=== PATIENT | female | born 1995 | race Caucasian/White ===

== ENCOUNTER → 2016-04-25 | Outpatient (CLI) | payer OTHER, BC ==
--- NOTE | 2016-04-25 13:53 | MR ---
EXAMINATION TYPE: MR lumbar spine wo con DATE OF EXAM: 04/25/2016 1:08 PM COMPARISON: NONE HISTORY: Back pain TECHNIQUE: T1 and T2 axial and sagittal images of the lumbar spine are submitted. FINDINGS: There is no abnormal signal seen within the visualized spinal cord or paraspinal soft tissu es. At L1-2 there is no disc herniation or canal stenosis. No foraminal encroachment. At L2-3 there is no disc herniation or canal stenosis. No foraminal encroachment. At L3-4 there is no disc herniation or canal stenosis. No foraminal encroachment At L4-5 there is no disc herniation or canal stenosis. No foraminal encroachment At L5-S1 there is no disc herniation or canal stenosis. No foraminal encroachment IMPRESSION: 1. Normal MRI lumbar spine. EXAMINATION TYPE: MR thoracic spine wo con DATE OF EXAM: 04/25/2016 1:08 PM COMPARISON: NONE HISTORY: Back pain Standard multiplanar, multisequence MRI departmental protocol Multiplanar, multisequence images of the thoracic spine were acquired. Diffusion weighted imaging was performed. FINDINGS: At T5-T6 there is left paracentral disc bulging. No spinal cord contact. At T6-T7 there is central and right paracentral disc bulging or small protrusion. Neural foramina rem ain patent there is mild effacement of the thecal sac. At T8-T9 paracentral disc bulging but no canal stenosis. Mild effacement of thecal sac. Neural forami na. Remaining levels demonstrate no evidence of disc bulging, herniation, canal stenosis or foraminal enc roachment. No abnormal signal seen in the visualized spinal cord. IMPRESSION: Multilevel disc bulging with mild effacement of thecal sac but no evidence of neural foraminal encroa chment.
== END | disposition home or self-care (01) ==
LOC: RADMRIMAIN 12:00
PROVIDERS: ATTEND Psychiatry & Neurology Pain Medicine
DX: M51.24 Other intervertebral disc displacement, thoracic region (principal); M54.5 Low back pain
CPT/HCPCS: 72146; 72148

== ENCOUNTER → 2016-05-06 | Outpatient (CLI) | payer OTHER, BC ==
--- NOTE | 2016-05-06 23:11 | MR ---
EXAMINATION TYPE: MR cervical spine wo con DATE OF EXAM: 05/06/2016 9:50 PM COMPARISON: NONE HISTORY: CERVICAGIA, VISUAL CHANGES TECHNIQUE: Multiplanar, multisequence images of the cervical spine were acquired. C2-C3: No evidence for degenerative disc disease. No disc bulge/herniation or protrusion. No Canal stenosis. Foramina are patent bilaterally. C3-C4: No evidence for degenerative disc disease. No disc bulge/herniation or protrusion. No Canal stenosis. Foramina are patent bilaterally. C4-C5: No evidence for degenerative disc disease. No disc bulge/herniation or protrusion. No Canal stenosis. Foramina are patent bilaterally. C5-C6: No evidence for degenerative disc disease. No disc bulge/herniation or protrusion. No Canal stenosis. Foramina are patent bilaterally. C6-C7: No evidence for degenerative disc disease. No disc bulge/herniation or protrusion. No Canal stenosis. Foramina are patent bilaterally. C7-T1: No evidence for degenerative disc disease. No disc bulge/herniation or protrusion. No Canal stenosis. Foramina are patent bilaterally. Cervical segments are intact. There is normal alignment. Cervical spinal cord is of normal signal. Craniovertebral junction relationships are within normal limits. IMPRESSION: 1. No evidence of disc herniation, canal stenosis, or foraminal encroachment.
--- NOTE | 2016-05-07 00:21 | MR ---
EXAMINATION TYPE: MR brain wo/w con DATE OF EXAM: 05/06/2016 10:16 PM COMPARISON: NONE HISTORY: CERVICALGIA, VISUAL CHANGES CONTRAST: Standard multiplanar, multisequence MRI departmental protocol utilizing 13 mL intravenous MultiHance gadolinium contrast. FINDINGS: The ventricles and sulci appear normal. There is no mass effect nor midline shift. There is no evidence of intracranial hemorrhage. Ma and white matter structures have fairly normal signal p attern. There is no evidence of cerebral edema. There is altered signal across the brain on the FLAIR images on the axial image 18 that is thought to be artifactual. The T2 images in this area appear no rmal. The brainstem appears normal. Corpus callosum appears normal. Sella turcica appears normal. The re is normal uniform enhancement of the sella turcica. I see no pathologic enhancement. The remainder of the exam is unremarkable. IMPRESSION: Normal MR scan of the brain with and without contrast.
== END | disposition home or self-care (01) ==
LOC: RADMRIMAIN 20:51
PROVIDERS: ATTEND Psychiatry & Neurology Pain Medicine
DX: H53.8 Other visual disturbances (principal); M54.2 Cervicalgia
CPT/HCPCS: 70553; 72141; A9577

== ENCOUNTER 2022-01-21 14:09 | Emergency (ER) | payer BC ==
[2022-01-21 14:43] VITALS: BP 115/71; PULSE 78; RESP 16
[2022-01-21] MEDS ORDERED: LIDOCAINE 1% INJ 10MG/ML (30 ML VIAL-PF) SQ ONE (15:30)
[2022-01-21 16:06] VITALS: TEMP 98.2
--- NOTE | 2022-01-21 16:18 | XR ---
EXAMINATION TYPE: XR humerus LT DATE OF EXAM: 01/21/2022 CLINICAL HISTORY: Laceration injury with pain. TECHNIQUE: Two views of the left humerus are obtained. COMPARISON: None. FINDINGS: There is no acute fracture or dislocation seen in the left humerus. The left shoulder and elbow joints appear within normal limits. The overlying soft tissue appears within normal limits. IMPRESSION: Unremarkable study.
--- NOTE | 2022-01-21 16:50 | ED ---
Wound/Laceration HPI - General Chief Complaint: Wound/Laceration Stated Complaint: Left arm injury Time Seen by Provider: 01/21/22 15:12 Source: patient Mode of arrival: ambulatory Limitations: no limitations - History of Present Illness Initial Comments: Patient is a 26-year-old female presenting with chief complaint of laceration to the left arm. Patient was moving a fish tank, when she dropped it, this resulted in a 1 cm cut to the left before meals. Upon arrival bleeding is well- controlled. Patient denies any numbness, tingling, weakness. Her last tetanus shot was 6 years ago. - Related Data Allergies Allergy/AdvReac Type Severity Reaction Status Date / Time No Known Allergies Allergy Verified 01/21/22 14:43 Review of Systems ROS Statement: Those systems with pertinent positive or pertinent negative responses have been documented in the HPI. ROS Other: All systems not noted in ROS Statement are negative. Past Medical History Past Medical History: No Reported History History of Any Multi-Drug Resistant Organisms: None Reported Past Surgical History: No Surgical Hx Reported Past Psychological History: No Psychological Hx Reported Smoking Status: Current every day smoker, Never smoker Past Alcohol Use History: None Reported Past Drug Use History: None Reported General Exam Limitations: no limitations General appearance: alert, in no apparent distress Head exam: Present: atraumatic, normocephalic, normal inspection Eye exam: Present: normal appearance Neck exam: Present: normal inspection Respiratory exam: Present: normal lung sounds bilaterally. Absent: respiratory distress, wheezes, rales, rhonchi, stridor Cardiovascular Exam: Present: regular rate, normal rhythm, normal heart sounds. Absent: systolic murmur, diastolic murmur, rubs, gallop, clicks Extremities exam: Present: full ROM Neurological exam: Present: alert, oriented X3, CN II-XII intact Psychiatric exam: Present: normal affect, normal mood Expanded Type of lesion: Present: laceration (1 cm, located on the left AC) Course Vital Signs 01/21/22 14:39 Temperature 98.2 F Pulse Rate 78 Respiratory 16 Rate Blood Pressure 115/71 O2 Sat by Pulse 100 Oximetry Procedures - Laceration Laceration #1 Consent Obtained: verbal consent Indication: laceration Site: upper extremity (Left AC) Size (cm): 1 Description: linear Depth: simple, single layer Anesthetic Used: lidocaine 1% Anesthesia Technique: local infiltration Amount (mls): 2 Pre-repair: wound explored, irrigated extensively Type of Sutures: nylon Size of Sutures: 4-0 Number of Sutures: 3 Technique: simple, interrupted Patient Tolerated Procedure: well Medical Decision Making - Medical Decision Making Patient is a 26-year-old female with chief complaint of laceration. Laceration located on the left before meals, patient has full range of motion and sensation. Wound is repaired, see procedure note for details. Patient is up-to-date on tetanus. Educated on wound care. Follow-up with PCP. Report back to ER with any new or worsening symptoms. Discussed return parameters and answered all questions. Patient conveyed verbal understanding and agreed to the plan. I discussed this case in detail with my attending Dr. Edmonds Disposition Clinical Impression: Laceration Disposition: HOME SELF-CARE Condition: Good Instructions (If sedation given, give patient instructions): Care For Your Stitches (ED), Laceration (ED) Additional Instructions: Follow-up with PCP. Report back to ER with any new or worsening symptoms. Keep the wound clean, dry, and covered. Wash gently with soap and water. Avoid prolonged submersion, such as swimming or baths. Sutures may be removed in 7-10 days. Signs of infection include redness, swelling, warmth, tenderness, discharge, fever, chills. Is patient prescribed a controlled substance at d/c from ED?: No Referrals: None,Stated [Primary Care Provider] - 1-2 days Time of Disposition: 16:50
== END 2022-01-21 17:02 | disposition home or self-care (01) ==
LOC: EC 14:09
DX: S41.112A Laceration without foreign body of left upper arm, initial encounter (principal); F17.200 Nicotine dependence, unspecified, uncomplicated; W26.8XXA Contact with other sharp object(s), not elsewhere classified, initial encounter
CPT/HCPCS: 73060; 99283; 12001; J2001

== ENCOUNTER → 2022-06-06 | Outpatient (CLI) | payer OTHER ==
--- NOTE | 2022-06-06 14:37 | XR ---
EXAMINATION TYPE: XR foot complete LT DATE OF EXAM: 06/06/2022 CLINICAL HISTORY: Checking for foreign objects. Incident occurred 6 months ago TECHNIQUE: Frontal, lateral, and oblique images of the left foot are obtained. COMPARISON: None FINDINGS: There is no acute fracture/dislocation evident in the left foot. The joint spaces in the left foot appear within normal limits. The overlying soft tissue appears unremarkable. There is an o ssific density at the dorsal aspect of the first tarsometatarsal joint. IMPRESSION: There is no acute fracture or dislocation in the left foot. Ossific density at the dorsa l aspect of the first tarsometatarsal joint is favored to be an accessory ossicle. No foreign body is seen.
== END | disposition home or self-care (01) ==
LOC: RADXRMAIN 10:58
PROVIDERS: ATTEND Family Medicine
DX: S90.852A Superficial foreign body, left foot, initial encounter (principal); M89.8X7 Other specified disorders of bone, ankle and foot